=== PATIENT | female | born 1955 | race Caucasian/White ===

== ENCOUNTER 2017-02-24 15:50 | Emergency (ER) | payer MEDICAID ==
[~2017-02-24] VITALS: Ht 162.6 cm; Wt 81.4 kg
[2017-02-24 16:33] VITALS: BP 137/66
--- NOTE | 2017-02-24 19:25 | NUR ---
61/F CAME IN FOR REEVALUATION FOR FEVER, CONGESTION, RUNNY NOSE AND COUGH. PT WAS SEEN YESTERDAY FOR SIMILAR SYMPTOMS REPORTS NO RELIEF, RX: AMOXICILLIN. ALL LUNG SOUNDS CBTA, 20RR EVEN AND UNLABORED, WITH NASAL CONGESTION. CURRENTLY AFEBRILE 99.4.
[2017-02-24] MEDS ORDERED: cefTRIAXone 1,000 MG in LIDOCAINE 1% ***ER ONLY *** 2.1 ML IM ONE (19:55)
--- NOTE | 2017-02-24 20:27 | NUR ---
Patient discharged with v/s stable. Written and verbal after care instructions given and explained. Patient verbalized understanding. Ambulatory with steady gait. All questions addressed prior to discharge. Advised to follow up with PMD.
[2017-02-24 20:31] VITALS: BP 129/74
== END 2017-02-24 20:27 | disposition home or self-care (01) ==
LOC: MED 15:50
DX: J32.9 Chronic sinusitis, unspecified (principal); Z88.2 Allergy status to sulfonamides; Z88.5 Allergy status to narcotic agent; Z88.8 Allergy status to other drugs, medicaments and biological substances
CPT/HCPCS: 96372; 99283; J0696; J2001